=== PATIENT | female | born 1940 | race Caucasian/White ===

== ENCOUNTER 2020-10-08 20:43 | Emergency (ER) | payer MEDICARE, OTHER ==
[~2020-10-08] VITALS: Ht 160 cm; Wt 60.0 kg
--- NOTE | 2020-10-08 20:53 | NUR ---
Pt arrives via [facility]. Reports she has just not been feeling well the last 2 days and at dinner genesis started having chest pain while at rest accompanied by right arm numbness and tingling. Reports the pain is gone now but she still just feels "funny. Hooked up to monitor, EKG done.
--- NOTE | 2020-10-08 21:30 | NUR ---
Pt denies needs at this time. Hooked up to monitor, breathing equal and non-labored. Denies chest pain or discomfort at this time.
[2020-10-08 21:52] LABS: BASOPHILS % (AUTO) 1 % (0-1); EOSINOPHILS % (AUTO) 1 % (1-7); LYMPHOCYTES % (AUTO) 28 % (22-44); MEAN CORPUSCULAR HGB CONC 33.5 g/dL (32.4-35.8); MONOCYTES % (AUTO) 8 % (2-9); NEUTROPHILS % (AUTO) 62 % (42-75); PLATELET COUNT 248 x10^3/uL (130-400); RED BLOOD COUNT 4.72 x10^6/uL (3.82-5.3); RED CELL DISTRIBUTION WIDTH 13.9 % (9.6-15.2)
[2020-10-08 21:53] LABS: ALANINE AMINOTRANSFERASE 24 U/L (12-78); ALBUMIN 3.1 g/dL (3.4-5.0); ANION GAP 4 mmol/L (5-15); CALCIUM 8.6 mg/dL (8.5-10.1); CHLORIDE 107 mmol/L (98-107); CREATININE 0.68 mg/dL (0.55-1.02)
[2020-10-08 21:55] LABS: MD NO
[2020-10-08 21:58] LABS: ALKALINE PHOSPHATASE 90 U/L (45-117); BILIRUBIN,TOTAL 0.3 mg/dL (0.2-1.0); TOTAL PROTEIN 6.5 g/dL (6.4-8.2); TROPONIN I < 0.015 ng/mL (0.000-0.045)
--- NOTE | 2020-10-08 22:22 | NUR ---
Pt denies needs at this time.
[2020-10-08 22:54] VITALS: BP 163/95
== END 2020-10-08 22:57 | disposition home or self-care (01) ==
LOC: ED 21:31
DX: R07.2 Precordial pain (principal); R94.31 Abnormal electrocardiogram [ECG] [EKG]; R07.89 Other chest pain; Z90.89 Acquired absence of other organs; Z90.49 Acquired absence of other specified parts of digestive tract; Z90.710 Acquired absence of both cervix and uterus; Z88.6 Allergy status to analgesic agent
CPT/HCPCS: 36415; 71045; 80053; 83690; 83880; 84484; 85025; 93005; 99285